=== PATIENT | female | born 1970 | race Caucasian/White ===

== ENCOUNTER → 2024-02-28 | Day surgery (SDC) | payer BC, OTHER ==
[~2024-02-28] MED LIST: BUMETANIDE1 MG PO; DEXAMETHASONE SOD PHOS INJ 4 MG/ML SDV ONE; DEXTROAMP-AMPHE30 M1 PO; FENTANYL CITRATE/PF 100MCG/2 ML INJ ONE; LIDOCAINE HCL 2% LOCAL INJ 5 ML SDV VIAL INJ ONE; LOVENOX60 MG/0.6 SC; METOCLOPRAMIDE HCL 10 MG/2ML VIAL ONE; MIDAZOLAM HCL 2 MG/2 ML VIAL ONE; MULTI-VITAMIN1 EACH PO; ONDANSETRON HCL INJ 2MG/ML 2ML 2 MG/ML VIAL ONE; PROPOFOL IV EMULSION 10 MG/ML 20 ML VIAL ONE; SEVOFLURANE INHAL SOLN 250 ML PEN BTL ONE; VITAMIN D3 PO; XARELTO20 MG PO; ZOLPIDEM TARTRAT5 MG PO
[2024-02-28 10:49] LABS: INR 0.89; PARTIAL THROMBOPLASTIN TIME 25.5 seconds (23.8-35.5); PROTHROMBIN TIME 12.5 seconds (11.9-14.5)
[2024-02-28] MEDS: FENTANYL CITRATE/PF 100MCG/2 ML INJ ONE (12:13)
[2024-02-28 13:03] VITALS: BP 165/97; PULSE 63; RESP 18; O2SAT 100
[2024-02-28] MEDS: LACTATED RINGER'S 1,000 ML ONE (13:09)
== END | disposition home or self-care (01) ==
LOC: OR 10:00
PROVIDERS: ATTEND Specialist
DX: G56.03 Carpal tunnel syndrome, bilateral upper limbs (principal); K21.9 Gastro-esophageal reflux disease without esophagitis; E03.9 Hypothyroidism, unspecified; F90.9 Attention-deficit hyperactivity disorder, unspecified type; Z86.711 Personal history of pulmonary embolism; Z79.01 Long term (current) use of anticoagulants; Z85.828 Personal history of other malignant neoplasm of skin; Z98.84 Bariatric surgery status; Z79.899 Other long term (current) drug therapy
CPT/HCPCS: 29848; 36415; 71046; 85610; 85730; J0690; J1100; J2001; J2250; J2405; J2704; J2765; J3010; J7121